=== PATIENT | male | born 1970 | race Caucasian/White ===

== ENCOUNTER 2021-03-12 16:02 | Emergency (ER) | payer OTHER ==
[2021-03-12 16:49] VITALS: TEMP 101.1; BMI 25.0
[2021-03-12] MEDS ORDERED: ACETAMINOPHEN 500 MG TABLET (FP) PO ONE (17:50)
[2021-03-12] MEDS ORDERED: ACETAMINOPHEN 500 MG TABLET (FP) ONE (17:54)
[2021-03-12 18:57] VITALS: BP 106/73; PULSE 74
== END 2021-03-12 18:57 | disposition home or self-care (01) ==
LOC: JER 16:02
DX: B34.9 Viral infection, unspecified (principal)
CPT/HCPCS: 87804; 99283-25; C9803; U0003; U0005